=== PATIENT | female | born 2000 | race African-American/Black ===

== ENCOUNTER 2020-12-26 17:12 | Emergency (ER) | payer MEDICAID ==
[~2020-12-26] VITALS: Ht 154.9 cm; Wt 63.5 kg
[2020-12-26 18:53] VITALS: BP 133/79
[2020-12-26] MEDS ORDERED: ACETAMINOPHEN/CODEINE#3 (300/30mg) TAB PO ONE (19:00)
[2020-12-26] MEDS ORDERED: ONDANSETRON ODT 4 MG TAB PO ONE (19:00)
== END 2020-12-26 19:30 | disposition home or self-care (01) ==
LOC: ER 17:12
DX: S20.319A Abrasion of unspecified front wall of thorax, initial encounter (principal); F12.10 Cannabis abuse, uncomplicated; V43.52XA Car driver injured in collision with other type car in traffic accident, initial encounter; Y93.89 Activity, other specified; Y92.410 Unspecified street and highway as the place of occurrence of the external cause; Y99.8 Other external cause status
CPT/HCPCS: 71046; 81025; 93005; 99283; Q0162